=== PATIENT | male | born 1995 | race Caucasian/White ===

== ENCOUNTER 2018-09-26 12:24 | Emergency (ER) | payer MEDICAID ==
[~2018-09-26] VITALS: Ht 172.7 cm; Wt 107.5 kg
[2018-09-26 12:34] VITALS: Ht 172.7 cm; Wt 107.5 kg
[2018-09-26 14:50] VITALS: BP 138/82
== END 2018-09-26 14:50 | disposition home or self-care (01) ==
LOC: ED 12:24
DX: S90.32XA Contusion of left foot, initial encounter (principal); W20.8XXA Other cause of strike by thrown, projected or falling object, initial encounter; Y93.89 Activity, other specified; Y92.89 Other specified places as the place of occurrence of the external cause; Y99.8 Other external cause status